=== PATIENT | male | born 1965 | race Caucasian/White ===

== ENCOUNTER 2023-11-30 09:50 | Day surgery (SDC) | payer BC ==
--- NOTE | 2023-11-30 10:12 | EDPHYS ---
Physician Documentation [facility] Name: Elmo Thomas Age: 58 yrs Sex: Male : 1965 Arrival Date: 11/30/2023 Time: 09:50 Bed 20 Private MD: LATANYA Physician Scott Marinelli HPI: 11/29 10:00 This 58 yrs old Male presents to ER via Unassigned with complaints of carlotta Laceration To Leg - Chainsaw. 10:00 The patient has a laceration related to: doing yard work. carlotta Historical: - Allergies: 10:08 No Known Allergies; db - Home Meds: 10:08 losartan 50 mg oral tablet [Active]; db - PMHx: 10:08 SKIN CANCER; db - Immunization history:: Adult Immunizations up to date, Last tetanus immunization: unknown. - Infectious Disease History:: Denies. - Family history:: not pertinent. - Social history:: Smoking status: Patient denies any tobacco usage or history of. ROS: 10:05 Constitutional: Negative for fever, chills, and weight loss, Eyes: Negative for injury, carlotta pain, redness, and discharge, ENT: Negative for injury, pain, and discharge, Neck: Negative for injury, pain, and swelling, Cardiovascular: Negative for chest pain, palpitations, and edema, Respiratory: Negative for shortness of breath, cough, wheezing, and pleuritic chest pain, Abdomen/GI: Negative for abdominal pain, nausea, vomiting, diarrhea, and constipation, Back: Negative for injury and pain, : Negative for injury, bleeding, discharge, and swelling, Neuro: Negative for headache, weakness, numbness, tingling, and seizure, Psych: Negative for depression, anxiety, suicide ideation, homicidal ideation, and hallucinations, Allergy/Immunology: Negative for hives, rash, and allergies, Endocrine: Negative for neck swelling, polydipsia, polyuria, polyphagia, and marked weight changes, Hematologic/Lymphatic: Negative for swollen nodes, abnormal bleeding, and unusual bruising, 10:05 MS/extremity: Positive for decreased range of motion, laceration, swelling, tenderness, of the right perez, Exam: 10:05 Constitutional: This is a well developed, well nourished patient who is awake, alert, carlotta and in no acute distress. Head/Face: Normocephalic, atraumatic. Eyes: Pupils equal round and reactive to light, extra-ocular motions intact. Lids and lashes normal. Conjunctiva and sclera are non-icteric and not injected. Cornea within normal limits. Periorbital areas with no swelling, redness, or edema. ENT: Nares patent. No nasal discharge, no septal abnormalities noted. Tympanic membranes are normal and external auditory canals are clear. Oropharynx with no redness, swelling, or masses, exudates, or evidence of obstruction, uvula midline. Mucous membranes moist. Neck: Trachea midline, no thyromegaly or masses palpated, and no cervical lymphadenopathy. Supple, full range of motion without nuchal rigidity, or vertebral point tenderness. No Meningismus. Chest/axilla: Normal chest wall appearance and motion. Nontender with no deformity. No lesions are appreciated. Cardiovascular: Regular rate and rhythm with a normal S1 and S2. No gallops, murmurs, or rubs. Normal PMI, no JVD. No pulse deficits. Respiratory: Lungs have equal breath sounds bilaterally, clear to auscultation and percussion. No rales, rhonchi or wheezes noted. No increased work of breathing, no retractions or nasal flaring. Abdomen/GI: Soft, non-tender, with normal bowel sounds. No distension or tympany. No guarding or rebound. No evidence of tenderness throughout. Back: No spinal tenderness. No costovertebral tenderness. Full range of motion. Neuro: Awake and alert, GCS 15, oriented to person, place, time, and situation. Cranial nerves II-XII grossly intact. Motor strength 5/5 in all extremities. Sensory grossly intact. Cerebellar exam normal. Normal gait. Psych: Awake, alert, with orientation to person, place and time. Behavior, mood, and affect are within normal limits. 10:05 Skin: Appearance: normal except for affected area, abscess, not appreciated, cellulitis, is not appreciated, induration, is not appreciated, injury, laceration(s), the wound is approximately 8 cm(s), with a depth of 1.5 cm(s), of the right perez, no rash present. Vital Signs: 09:52 BP 167 / 92; Pulse 81; Resp 18; Temp 98; Pulse Ox 96% on R/A; Weight 133.81 kg; Height db 6 ft. 0 in. ; 10:30 BP 127 / 96; Pulse 82; Resp 18; Pulse Ox 97% on R/A; db 11:00 BP 134 / 82; Pulse 86; Resp 16; Pulse Ox 97% ; db 11:30 BP 121 / 76; Pulse 74; Resp 18; Pulse Ox 97% on R/A; db 12:00 BP 121 / 85; Pulse 80; Resp 18; Pulse Ox 97% on R/A; db 13:00 BP 127 / 87; Pulse 68; Resp 18; Pulse Ox 98% on R/A; db 14:24 BP 145 / 82; Pulse 73; Resp 16; Pulse Ox 98% on R/A; db 09:52 Body Mass Index 40.01 (133.81 kg, 182.88 cm) db MDM: 09:58 Patient medically screened. jr8 10:07 Data reviewed: vital signs, nurses notes, lab test result(s), EKG, radiologic studies, [facility] plain films. Consideration of Admission/Observation Patient was admitted/placed on observation. Escalation of care including admission/observation considered. I considered the following discharge prescriptions or medication management in the emergency department Medications were administered in the Emergency Department. See MAR. Independent interpretation of the following test(s) in the Emergency Department X-Ray: My interpretation is tib fib neg. Test considered but Not performed: Ultrasound no venous doppler. Historians other than the Patient: Friend: well informed. External Records Reviewed: skin cancer. Care significantly affected by the following chronic conditions: Obesity, none. 11/29 10:04 Order name: CBC with Diff [facility] 11/29 10:04 Order name: Comprehensive Metabolic Panel [facility] 11/29 10:04 Order name: PT-INR [facility] 11/29 10:45 Order name: RAD [facility] 11/29 10:47 Order name: RAD [facility] 11/29 10:04 Order name: EKG - Nurse/Tech; Complete Time: 13:41 [facility] 11/29 10:04 Order name: Wound Care: saline iodine gauze to cover; Complete Time: 11:53 [facility] 11/29 10:04 Order name: NPO; Complete Time: 10:35 [facility] Administered Medications: 10:34 Drug: Piperacillin-Tazobactam IVPB 3.375 grams IVPB once over 60 mins; (mix in NS 100 db mL) Route: IVPB; Infused Over: 60 mins; Site: right antecubital; 11:15 Follow up: Response: No adverse reaction; IV Status: Completed infusion; IV Intake: db 100ml 10:35 CANCELLED (Duplicate Order): tetanus toxoid,adsorbed0.5 ml IM once; Provide Vaccine db Information Statement (VIS). 10:35 Drug: Boostrix Tdap IM 0.5 ml IM once; as a single dose Route: IM; Site: right deltoid; db 14:29 Follow up: Response: (VIS) Vaccine information sheet provided today. Questions and/or db concerns addressed. VIS edition date: Feb 10, 2021.; No adverse reaction Disposition Summary: 11/30/23 10:12 Hospitalization Ordered Notes: Hospitalization Status: Observation carlotta Provider: Mann Hawk cha Location: Operating Room carlotta Condition: Stable carlotta Problem: new carlotta Symptoms: are unchanged carlotta Bed/Room Type: Standard [facility] Room Assignment: [facility] Diagnosis - Laceration without foreign body, right lower leg - complex , muscle involvment, carlotta Chainsaw Forms: - Medication Reconciliation Form carlotta - SBAR form carlotta - Leadership Thank You Letter [facility] Signatures: Dispatcher [employer] EDScott Rice MD MD cha Roszak, Josh, PA PA jr8 Florencia Escobar RN RN db Corrections: (The following items were deleted from the chart) 10:05 10:05 CBC+H.LAB.BRZ ordered. EDMS EDMS 10:05 10:05 COMPREHENSIVE METABOLIC PANEL+C.LAB.BRZ ordered. EDMS EDMS 10:05 10:05 PROTIME (+INR)+COAG.LAB.BRZ ordered. EDMS EDMS 10:05 10:05 Tib Fib Right+RAD.RAD.BRZ ordered. EDMS EDMS 10:05 10:05 Chest Single View+RAD.RAD.BRZ ordered. EDMS EDMS 10:35 10:04 Tetanus Toxoid,Adsorbed IM 0.5 ml IM once; Provide Vaccine Information Statement db (VIS). ordered. carlotta
--- NOTE | 2023-11-30 10:12 | ER ---
Nurse's Notes [facility] Name: Elmo Thomas Age: 58 yrs Sex: Male : 1965 Arrival Date: 11/30/2023 Time: 09:50 Bed 20 Private MD: Diagnosis: Laceration without foreign body, right lower leg-complex , muscle involvment, Chainsaw Presentation: 11/29 09:52 Chief complaint: Patient states: HAS RIGHT LOWER LEG PEREZ LACERATION FROM A CHAIN SAW. db Coronavirus screen: Vaccine status: Patient reports receiving the 2nd dose of the covid vaccine. Client denies travel out of the [place] in the last 14 days. At this time, the client does not indicate any symptoms associated with coronavirus-19. Ebola Screen: Patient negative for fever greater than or equal to 101.5 degrees Fahrenheit, and additional compatible Ebola Virus Disease symptoms Patient denies exposure to infectious person. Patient denies travel to an Ebola-affected area in the 21 days before illness onset. No symptoms or risks identified at this time. Complicating Factors: The type of wound is a puncture. Initial Sepsis Screen: Does the patient meet any 2 criteria? No. Patient's initial sepsis screen is negative. Does the patient have a suspected source of infection? No. Patient's initial sepsis screen is negative. Risk Assessment: Do you want to hurt yourself or someone else? Patient reports no desire to harm self or others. Onset of symptoms was November 30, 2023. 09:52 Method Of Arrival: Wheelchair db 09:52 Acuity: LAITH 3 db Triage Assessment: 10:08 General: Appears in no apparent distress. uncomfortable, Behavior is calm, cooperative. db Pain: Complains of pain in right leg and right perez. Neuro: Level of Consciousness is awake, alert, obeys commands, Oriented to person, place, time, situation, Speech is normal, Facial symmetry appears normal. Cardiovascular: No deficits noted. Respiratory: Airway is patent Respiratory effort is even, unlabored, Respiratory pattern is regular, symmetrical. GI: No deficits noted. No signs and/or symptoms were reported involving the gastrointestinal system. : No deficits noted. No signs and/or symptoms were reported regarding the genitourinary system. Derm: Wound noted right perez. Musculoskeletal: Circulation, motion, and sensation intact. Capillary refill < 3 seconds, Range of motion: intact in all extremities. Injury Description: Laceration sustained to right perez is jagged, not bleeding. Historical: - Allergies: 10:08 No Known Allergies; db - Home Meds: 10:08 losartan 50 mg oral tablet [Active]; db - PMHx: 10:08 SKIN CANCER; db - Immunization history:: Adult Immunizations up to date, Last tetanus immunization: unknown. - Infectious Disease History:: Denies. - Family history:: not pertinent. - Social history:: Smoking status: Patient denies any tobacco usage or history of. Screenin:10 [facility] ED Fall Risk Assessment (Adult) History of falling in the last 3 months, db including since admission No falls in past 3 months (0 pts) Confusion or Disorientation No (0 pts) Intoxicated or Sedated No (0 pts) Impaired Gait No (0 pts) Mobility Assist Device Used No (0 pt) Altered Elimination No (0 pt) Score/Fall Risk Level 0 - 2 = Low Risk Oriented to surroundings, Maintained a safe environment. Abuse screen: Denies threats or abuse. Denies injuries from another. Nutritional screening: No deficits noted. Tuberculosis screening: No symptoms or risk factors identified. Assessment: 10:10 Reassessment: Patient appears in no apparent distress at this time. SEE TRIAGE FOR db INITIAL ASSESSMENT. 10:44 Reassessment: Patient appears in no apparent distress at this time. Patient and/or db family updated on plan of care and expected duration. Pain level reassessed. Patient is alert, oriented x 3, equal unlabored respirations, skin warm/dry/pink. DR. MONROE AT PATIENT BEDSIDE. General: Appears in no apparent distress. comfortable, Behavior is calm, cooperative. Pain: Complains of pain in right leg and right perez. 13:41 Reassessment: Patient appears in no apparent distress at this time. Patient and/or db family updated on plan of care and expected duration. Pain level reassessed. Patient is alert, oriented x 3, equal unlabored respirations, skin warm/dry/pink. PT AMBULATORY TO RESTROOM. Vital Signs: 09:52 BP 167 / 92; Pulse 81; Resp 18; Temp 98; Pulse Ox 96% on R/A; Weight 133.81 kg; Height db 6 ft. 0 in. ; 10:30 BP 127 / 96; Pulse 82; Resp 18; Pulse Ox 97% on R/A; db 11:00 BP 134 / 82; Pulse 86; Resp 16; Pulse Ox 97% ; db 11:30 BP 121 / 76; Pulse 74; Resp 18; Pulse Ox 97% on R/A; db 12:00 BP 121 / 85; Pulse 80; Resp 18; Pulse Ox 97% on R/A; db 13:00 BP 127 / 87; Pulse 68; Resp 18; Pulse Ox 98% on R/A; db 14:24 BP 145 / 82; Pulse 73; Resp 16; Pulse Ox 98% on R/A; db 09:52 Body Mass Index 40.01 (133.81 kg, 182.88 cm) db ED Course: 09:52 Patient arrived in ED. mg5 09:58 Celestine Be PA is PHCP. jr8 09:58 Scott Marinelli MD is Attending Physician. jr8 10:04 Florencia Escobar, DUDLEY is Primary Nurse. db 10:08 Triage completed. db 10:10 Mann Monroe MD is Hospitalizing Provider. carlotta 10:10 Arm band placed on Patient placed in an exam room. db 10:15 Inserted saline lock: 20 gauge in right antecubital area, using aseptic technique. db Blood collected. 10:15 Initial lab(s) drawn, by me, sent to lab. EKG done, by ED staff. db 10:44 Patient has correct armband on for positive identification. Bed in low position. Call db light in reach. Side rails up X 1. Pulse ox on. NIBP on. Pillow given. 11:05 Dressings: 4X4s. Wound care: to laceration located on right perez was cleaned with db Patient tolerated well. 11:44 Surgical consent explained by physician, signed by patient. db 14:28 No provider procedures requiring assistance completed. Patient admitted, IV remains in db place. 14:29 Provided Education on: ADMIT. db Administered Medications: 10:34 Drug: Piperacillin-Tazobactam IVPB 3.375 grams IVPB once over 60 mins; (mix in NS 100 db mL) Route: IVPB; Infused Over: 60 mins; Site: right antecubital; 11:15 Follow up: Response: No adverse reaction; IV Status: Completed infusion; IV Intake: db 100ml 10:35 CANCELLED (Duplicate Order): tetanus toxoid,adsorbed0.5 ml IM once; Provide Vaccine db Information Statement (VIS). 10:35 Drug: Boostrix Tdap IM 0.5 ml IM once; as a single dose Route: IM; Site: right deltoid; db 14:29 Follow up: Response: (VIS) Vaccine information sheet provided today. Questions and/or db concerns addressed. VIS edition date: Feb 10, 2021.; No adverse reaction Medication: 10:44 Vaccine Information Statement (VIS) provided today. Questions and/or concerns db addressed. VIS edition date: February 10, 2018. Intake: 11:15 IV: 100ml; Total: 100ml. db Outcome: 10:12 Decision to Hospitalize by Provider. carlotta 14:27 Admitted to ER Hold. [facility] documentation. db 14:27 Condition: stable 14:27 Instructed on the need for admit, 15:03 Patient left the ED. db Signatures: Scott Marinelli MD MD cha Roszak, Josh, PA PA jr8 Florencia Escobar, RN RN db Margarette Fernandez mg5
[2023-11-30] MEDS ORDERED: MORPHINE 4 MG/ML SYR IV PRN (10:17)
[2023-11-30] MEDS ORDERED: ONDANSETRON 4 MG/2 ML VIAL IV PRN (10:17)
[2023-11-30] MEDS ORDERED: NA CHLORIDE 0.9% 100 ML ONE (10:25)
[2023-11-30] MEDS ORDERED: TDAP (DIPHTH,PERTUSS(ACELL),TET VAC) 0.5 ML VIAL IMVAC ONE (10:25)
[2023-11-30] MEDS ORDERED: PIPERACIL/TAZO 3.375 GM VIAL IV ONE (10:26)
--- NOTE | 2023-11-30 10:45 | RAD REPORT ---
EXAM DESCRIPTION: RAD - Chest Single View - 11/30/2023 10:31 am CLINICAL HISTORY: COUGH COMPARISON: No comparisons FINDINGS: Lines: None. Lungs: No evidence of edema or pneumonia. Pleural: No significant pleural effusions or pneumothorax. Cardiac: The heart size is within normal limits. Mediastinum: Within normal limits. Bones: No acute fractures. Other: None IMPRESSION: No acute cardiopulmonary disease.
--- NOTE | 2023-11-30 10:46 | RAD REPORT ---
EXAM DESCRIPTION: RAD - Tib Fib Right - 11/30/2023 10:31 am CLINICAL HISTORY: PAIN COMPARISON: No comparisons FINDINGS/IMPRESSION: Laceration at the anterior right lower extremity at the level of the proximal t ibia and fibula. No radiopaque foreign body. No fracture identified.
[2023-11-30 10:52] LABS: Absolute Basophils 0.1 K/uL (0-0.5); Absolute Eosinophils 0.3 K/uL (0-0.5); Absolute Lymphocytes (CBC) 1.1 K/uL (0.7-4.9); Absolute Monocytes 0.8 K/uL (0.1-1.3); Absolute Neutrophil 5.8 K/uL (1.8-8.0); Basophils % 0.8 % (0-1.3); Eosinophils % 3.7 % (0-4.4); Hematocrit 44.9 % (39.6-49.0); Hemoglobin 15.5 g/dL (13.6-17.9); Lymphocytes % 13.3 % (15.3-44.8); MCH 29.2 pg (27.0-35.0); MCHC 34.5 g/dL (32.0-36.0); MCV 84.5 fL (80-100); MPV 7.4 fL (7.6-11.3); Monocytes % 9.6 % (3.3-12.3); Neutrophils % 72.6 % (41.7-73.7); Nucleated Red Blood Cells % 0.1 % (0-0); PT Prothrombin Time 11.8 SECONDS (9.5-12.5); Platelets 281 thou/uL (152-406); Protime INR 1.07; RBC Red Blood Cell Count 5.32 M/uL (4.33-5.43); Red Cell Distribution Width 14.8 % (12.1-15.2)
[2023-11-30] MEDS ORDERED: NA CHLORIDE 0.9% 1,000 ML IV SCH (11:00)
[2023-11-30 11:01] LABS: Albumin 3.8 g/dL (3.4-5.0); Anion Gap 10.2 mEq/L (5.0-15.0); Bilirubin Total 0.6 mg/dL (0.2-1.0); Potassium 4.2 mEq/L (3.5-5.1); Protein, Total 7.8 g/dL (6.4-8.2)
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
[2023-11-30] MEDS: Ringers Lactate 1,000 ML IV ONE (14:45)
[2023-11-30 15:03] VITALS: BMI 40.0
[2023-11-30] MEDS ORDERED: MIDAZOLAM HCL 2 MG/2 ML INJ ONE (16:35)
[2023-11-30] MEDS ORDERED: FENTANYL CITR 100 MCG/2 ML ONE (16:35)
[2023-11-30] MEDS ORDERED: propofoL 200 MG/20 ML VIAL IV ONE (16:35)
[2023-11-30] MEDS: LIDOCAINE HCL/EPINEPHRINE 20 ML MDV ONE (17:17)
--- NOTE | 2023-11-30 17:37 | P.OP ---
Preoperative diagnosis: RIGHT lower leg anterior compartment traumatic laceration Postoperative diagnosis: RIGHT lower leg anterior compartment traumatic laceration Primary procedure: Debridment and Washout of RIGHT lower leg Secondary procedure: Facial re-approximation, closure Anesthesia: GETA + Local Estimated blood loss: <10cc Specimen: debridement tissue Findings: ~ 8 cm x 3 cm laceration, into ant compartment, abutting tibia, into muscle Complications: None Drain(s): Other (1/4" iodoform wick placed ) Transferred to: Recovery Room Condition: Good
[2023-11-30 18:10] VITALS: O2SAT 99
[2023-11-30 18:45] VITALS: BP 167/83; TEMP 97
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
--- NOTE | 2023-12-03 14:23 | EKG ---
Test Date: 2023-11-30 Test Time: 13:33:37 Crematory Attendant: [place] MEASUREMENT RESULTS: Intervals: Rate: 66 SC: 158 QRSD: 142 QT: 432 QTc: 452 [place]: P: 33 SC: 158 QRS: -32 T: 17 INTERPRETIVE STATEMENTS: Normal sinus rhythm Left axis deviation Right bundle branch block Minimal voltage criteria for LVH, may be normal variant Abnormal ECG No previous ECG available for comparison Electronically Signed On 12-03-23 14:14:30 CDT by Dipak Fox
== END 2023-11-30 18:45 | disposition home or self-care (01) ==
LOC: ER 09:50 → UNDOADMOB 10:15 → ERHOLD 10:15 → OR 14:50
PROVIDERS: ATTEND Surgery
PROC: 0KQS3ZZ Repair Right Lower Leg Muscle, Percutaneous Approach (ICD-10-PCS; principal; 2023-11-30 13:15)
DX: S81.811A Laceration without foreign body, right lower leg, initial encounter (principal); W29.3XXA Contact with powered garden and outdoor hand tools and machinery, initial encounter; Y93.89 Activity, other specified; Y92.017 Garden or yard in single-family (private) house as the place of occurrence of the external cause; I10 Essential (primary) hypertension; Z85.828 Personal history of other malignant neoplasm of skin
CPT/HCPCS: 96365; 93005; 85025; 36415; 85610; 88304; 80053; 71045; 73590; 96372; 99285; 13121; 13122; J2704; J2543; J2250; J3010; J7120